=== PATIENT | male | born 1980 | race Caucasian/White ===

== ENCOUNTER 2016-11-07 21:51 | Emergency (ER) | payer OTHER ==
[~2016-11-07] VITALS: Ht 185.4 cm; Wt 125.0 kg
[2016-11-07 21:57] VITALS: BP 186/130; PULSE 108; RESP 20; O2SAT 97
--- NOTE | 2016-11-08 00:25 | ED.REPORT ---
HPI-General Illness Date of Service Nov 08, 2016 ED Provider: Andres Aguirre MD A 36 year old male with a history of hypertension presents to the ED complaining of back pain. The back pain is concentrated in the left paraspinal area and is described as "pressure." This is accompanied by weakness and numbness in his legs. The pt has been experiencing this weakness and numbness for three months, but the symptoms have worsened dramatically in the last three weeks. The weakness is especially prevalent when he is walking. The pt also began experiencing occasional urinary incontinence three weeks ago. In addition to these symptoms, he is complaining of saddle numbness, back pain, fever, numbness and paraesthesia in his hands, loss of sensation to light touch in his lower extremities, and one bloody bowel movement last night. The pt has seen his PCP recently but had no imaging done at that time. He denies IV drug use. Nursing Notes Stated Complaint: BACK & LEG NUMB, BLOOD IN STOOL Chief Complaint: General Complaint Nursing Notes Reviewed: Yes Allergies: Coded Allergies: No Known Allergies (Unverified , 11/07/16) Scheduled PRN Ibuprofen (Ibuprofen) 800 Mg Tablet 800 MG PO TID PRN PRN For Pain General Time Seen by MD: 00:24 Chief Complaint Weakness Hx Obtained From: Patient Arrived By: Walk-in Sudden in Onset?: No Onset Occurred: More than a week ago... Symptom Duration: Since onset Recent Healthcare: No recent doctor visit, No recent hospitalization Similar Sx Previous: No Past Medical History Past Medical History hypertension Past Surgical History none reported Smoking History Unknown if Ever Smoker Social History denies IV drug use Drug Use: THC Ambulatory Status Independent Review of Systems paraesthesia saddle numbness loss of sensation in lower extremities Full Review of Systems Constitutional: Reports: Fever Respiratory: Denies: Non-productive cough, Shortness of breath Cardiovascular: Denies: Chest pain GI: Reports: Hematochezia, Denies: Abdominal pain Male: Reports Incontinence (urinary) Musculoskeletal: Reports: Back pain, Extremity pain Skin: Denies Rash Neurologic: Reports: Numbness, Weakness Complete sys rev & neg: except as marked. Physical Exam Vital Signs Vital Signs Date Time Temp Pulse Resp B/P Pulse Ox O2 Delivery O2 Flow Rate FiO2 11/08/16 03:07 36.7 92 22 180/100 100 Room Air 11/08/16 02:29 92 22 180/100 100 Room Air 11/07/16 21:57 36.7 108 20 186/130 97 Room Air Initial VS: Reviewed General/Constitutional: Awake, Alert Head / Eyes: Atraumatic, Normocephalic, PERRL, EOMI ENT: Atraumatic, Airway patent, Mucous membranes moist Neck: Atraumatic, Supple, Full range of motion Respiratory / Chest: Atraumatic, Breath sounds NL, Breath sounds = bilat, No respiratory distress Cardiovascular: Heart rate NL, Regular rhythm, Heart sounds NL Abdomen: Atraumatic, Soft, Non-tender Back: Full range of motion mild lumbar spine tenderness bilateral lower back tenderness Upper Extremities Upper Extremity / MS: Atraumatic, Full range of motion Wrist / Hand: Atraumatic, Full range of motion Lower Extremity / Pelvis / MS: Atraumatic, Full range of motion Ankle / Foot: Atraumatic, Full range of motion Skin: Atraumatic, Color NL, No rash, Warm, Dry Rectum / Perineum: No gross blood guaiac negative Neurologic: Oriented X3, Speech NL, No motor deficits, No sensory deficits Psychiatric: Affect NL, Mood NL Interpretation & Diagnostics Interpretation & Diagnostics: MR Lumbar Spine: CONCLUSION: Minimal disc bulge at the L4-5. There is also more focal disc bulge in the region of the left neural foramen at L5-S1. Lab Results Interpretation Result Diagram: 11/08/164 11/08/164 Test 11/08/16 00:34 White Blood Count 16.4th/mm3 (3.8-10.1) Red Blood Count 5.18mil/mm3 (4.40-5.80) Hemoglobin 15.2g/dL (13.8-17.2) Hematocrit 45.3% (41.0-50.0) Mean Corpuscular Volume 87.5fL (81-100) Mean Corpuscular Hemoglobin 29.3pg (27.0-35.0) Mean Corpuscular Hemoglobin Concent 33.6% (32.0-37.0) Red Cell Distribution Width 14.6% (12.3-15.4) Platelet Count 333bil/L (150-400) Neutrophils (%) (Auto) 75.5% (40-74) Lymphocytes (%) (Auto) 16.3% (14-46) Monocytes (%) (Auto) 7.1% (4-12) Eosinophils (%) (Auto) 0.8% (0-5) Basophils (%) (Auto) 0.1% (0-3) Sodium Level 136mEq/L (134-144) Potassium Level 4.0mEq/L (3.5-5.2) Chloride Level 97mEq/L (97-108) Carbon Dioxide Level 23mmol/L (18-29) Blood Urea Nitrogen 9mg/dL (6-20) Creatinine 0.81mg/dL (0.76-1.27) Estimat Glomerular Filtration Rate 115mL/min (>59) Glucose Level 150mg/dL (60-99) Calcium Level 9.2mg/dL (8.5-10.1) Total Bilirubin 0.2mg/dL (0.0-1.2) Aspartate Amino Transf (AST/SGOT) 15U/L (0-50) Alanine Aminotransferase (ALT/SGPT) 26U/L (0-44) Alkaline Phosphatase 70U/L (25-150) Total Protein 7.3g/dL (6.4-8.4) Albumin 4.2g/dL (3.4-5.0) Hold Moore Top Tube Received (Received) Re-Eval/Medical Decision Med Decision/Clinical Course 36-year-old male presenting complaining of low-back pain 3 months with worsening bilateral lower extremity weakness and numbness 3 weeks. Also reports urinary incontinence 3 weeks. Denies stool incontinence. Reports subjective fevers. Vital signs stable he is afebrile here. Given his complaints, MRI lumbar spine was performed with no canal stenosis but with disc bulge. Patient declined to give us a urine. He is not an IV drug abuser and has never been an IV drug user per patient. His white blood cell count is mildly elevated. His tenderness is over his lower back, lumbar spine. Again, no evidence of canal stenosis or epidural abscess. Patient requested to go home. We discharged with plans to follow up with primary doctor. Return precautions given. Time of Eval: 03:00 Patient Status: Condition improved Re-Evaluation/Progress Note: Pt rechecked, who is able to stand and walk. MRI results and diagnosis are discussed, as well as the plan for discharge. The pt understands and agrees with the plan. All questions are addressed at this time. Counseled Regarding: Diagnosis, Lab results, Need for follow-up, When/why to return to ED Discharge & Departure Primary Impression: Bulging disc Disposition: Home Discharge Condition All VS Reviewed: Yes Condition: Stable Additional Instructions: Thank you for entrusting us with your care today. Your symptoms appear to be related to your bulging disc. Take ibuprofen as directed for pain and follow up with your primary care physician for further evaluation. Return to the emergency department if you develop any new or worsening symptoms including weakness, numbness, fever, vomiting, or incontinence. Referrals: Demetrio Mills ND (PCP) Rosio Attestation Portions of this note were transcribed by Simran Terrell. I, Dr. Aguirre personally performed the history, physical exam and medical decision-making; I reviewed and confirmed the accuracy of the information in the transcribed note. Signed by: Rosio Salazar, 11/08/2016 and 03:08. copies to: Demetrio Mills ND, Ben M MD Nov 08, 2016 00:25 SIMRAN TERRELL Nov 08, 2016 02:06
[2016-11-08 00:50] LABS: BASOPHILS % (AUTO) 0.1 % (0-3); EOSINOPHILS % (AUTO) 0.8 % (0-5); MONOCYTES % (AUTO) 7.1 % (4-12); Mean Corpuscular Hemoglobin 29.3 pg (27.0-35.0); Mean Corpuscular Volume 87.5 fL (81-100); NEUTROPHILS % (AUTO) 75.5 % (40-74); Platelet Count 333 bil/L (150-400)
[2016-11-08 02:29] VITALS: BP 180/100; PULSE 92; RESP 22; O2SAT 100
[2016-11-08] MEDS ORDERED: IBUP800T28 PO (03:02)
[2016-11-08 03:07] VITALS: BP 180/100; PULSE 92; RESP 22; O2SAT 100
--- NOTE | 2016-11-08 11:26 | DRSVH ---
PROCEDURE: MRI LUMBAR SPINE WITH AND WITHOUT CONTRAST ([id number]) INDICATIONS: back pain, incontinence, LE numbness TECHNIQUE: Noncontrast sagittal T1 spin echo and T2 fast spin echo, sagittal STIR, axial T1 and T2 fast spin ech o through the lumbar spine. In cases with scoliosis, additional coronal T2 fast spin echo may be per formed. After the administration of contrast, sagittal and axial T1 spin echo with fat saturation th rough the lumbar spine. COMPARISON: None. FINDINGS: Image quality: Mild motion is present. Alignment and curvature: There is trace retrolisthesis of L4 on L5. Marrow: Marrow is of normal overall signal. No acute vertebral body compression fractures. No susp icious marrow enhancement. Spinal cord: Conus medullaris terminates at the L1 level. Visualized spinal cord demonstrates mihir l signal, without suspicious enhancement. Paraspinous soft tissues: No paravertebral masses or abnormal enhancement. Discs: Mild desiccation is present at L4-5. L1-L2: No disc bulge, spinal stenosis or foraminal narrowing. L2-L3: No disc bulge, spinal stenosis or foraminal narrowing. L3-L4: No disc bulge, spinal stenosis or foraminal narrowing. L4-L5: Minimal disc bulge with mild spinal stenosis. Minimal to mild right foraminal narrowing. L5-S1: Minimal left posterior paracentral/foraminal bulge. Minimal spinal stenosis or foraminal kush rowing. IMPRESSION: 1. Minimal disc bulges at L4-5 and S1, with the latter being a posterior paracentral/foraminal bulge. No foraminal narrowing is noted at L5-S1. 2. Minimal to mild spinal stenosis at L4-5 and L5-S1. Dictated by: Ashley Conner M.D. on 11/08/2016 at 11:11 Approved by: Ashley Conner M.D. on 11/08/2016 at 11:25
== END 2016-11-08 03:07 | disposition home or self-care (01) ==
LOC: SED 21:51
DX: M51.26 Other intervertebral disc displacement, lumbar region (principal); I10 Essential (primary) hypertension; F12.10 Cannabis abuse, uncomplicated
CPT/HCPCS: 36415; 72158; 80053; 85025; 99284; A9585